=== PATIENT | female | born 1940 | race Caucasian/White ===

== ENCOUNTER 2022-09-14 08:31 | Inpatient (IN) | payer MEDICARE, OTHER ==
[2022-09-14] MEDS ORDERED: Dextrose 50% Abboject 50 ML SYRINGE ONE ×2 (09:17→10:14)
[2022-09-14 09:20] LABS: Hemoglobin 13.3 g/dL (12.0-16.0); Mean Corpuscular HGB CONC 31.9 g/dL (32.0-36.0); Mean Corpuscular Hemoglobin 35.7 pg (27.0-31.0); Mean Platelet Volume 9.1 fL (7.4-10.4); Platelet Count 141 10x3/uL (130-400); RBC Distribution Width 12.7 % (11.5-14.5); Red Blood Cell (RBC) Count 3.72 mill/uL (4.20-5.40); White Blood Cell (WBC) Count 21.6 10x3/uL (4.8-10.8)
[2022-09-14] MEDS ORDERED: diphenhydrAMINE 50 MG/ML VIAL ONE (09:20)
[2022-09-14] MEDS ORDERED: methylPREDNISolone Sod Succ 40 MG VIAL ONE (09:20)
[2022-09-14] MEDS ORDERED: Famotidine/PF 20 mg/2ml Vial ONE ×2 (09:20→09:26)
[2022-09-14 09:30] LABS: INR-International Normal Ratio 1.7
[2022-09-14 09:31] LABS: PTT 32.7 sec (22.9-36.1)
[2022-09-14 09:50] LABS: ALT (SGPT) 799 U/L (8-55); AST (SGOT) 723 U/L (5-34); Alkaline Phosphatase 193 U/L (40-110); Anion Gap 29 mmol/L (10-20); BUN (Urea Nitrogen) 78 mg/dL (9.8-20.1); Bilirubin, Total 1.2 mg/dL (0.2-1.2); Calc. Creatinine Clearance 0 mL/min (70-130); Calcium 8.2 mg/dL (7.8-10.44); Chloride 110 mmol/L (98-107); Estimated GFR 10; Globulin 2.6 g/dL (2.4-3.5); Glucose 140 mg/dL (83-110); Lipase 48 U/L (8-78); Protein, Total 5.6 g/dL (5.8-8.1); Sodium 140 mmol/L (136-145)
[2022-09-14 09:57] LABS: Carbon Dioxide 8 mmol/L (23-31); Potassium 6.9 mmol/L (3.5-5.1)
[2022-09-14] MEDS ORDERED: Cefepime 2 GM VIAL ONE (10:14)
[2022-09-14] MEDS ORDERED: Insulin Regular 300 UNITS/3 ML VIAL ONE (10:14)
[2022-09-14] MEDS ORDERED: Calcium Chloride 1 GM/10 ML Abboject SYRINGE ONE (10:14)
[2022-09-14] MEDS ORDERED: Vancomycin 1 GM/200 ML (FROZEN) BAG ONE (10:14)
[2022-09-14 10:15] LABS: CKMB 6.8 ng/mL (0-6.6)
[2022-09-14 10:54] LABS: Band 6 % (5-11); Lymphocytes 5 % (21-51); MDiff Complete? YES; Macrocytosis SLIGHT = 6-15 cells (100X) (0-5/hpf); Monocytes 2 % (0-10); Neutrophil 87 % (42-75); Platelet Morphology Comment Appears Adequate; Polychromasia SLIGHT = 2-3 cells (100X) (0-2/hpf)
[2022-09-14 11:26] LABS: Critical Call CKMB 6.8
[2022-09-14 11:29] LABS: Bacteria/HPF 3+ HPF (None Seen); Bilirubin Negative (Negative); Blood, Urine 1+ (Negative); Clarity Cloudy (Clear); Glucose, Urine (Dipstick) Normal (Negative); Ketone, Urine Negative (Negative); Leukocyte Negative Leu/uL (Negative); Nitrite Negative (Negative); Protein, Urine (Dipstick) 600 mg/dL (Neg-Trace); RBC/HPF 0-3 HPF (0-3); Specific Gravity, Urine 1.022 (1.002-1.036); Squamous Epithelial 0-3 HPF (0-3); Urobilinogen Normal mg/dL (Less than 2); WBC/HPF 0-3 HPF (0-3)
[2022-09-14] MEDS ORDERED: Sodium Chloride 0.9% 1,000 ML IV SCH (13:00)
[2022-09-14 16:32] VITALS: BP 73/56; TEMP 97.4
== END 2022-09-14 16:55 | disposition home or self-care (01) | DRG 871 ==
LOC: ERS 08:31 → ERHOLD 11:32 → MSONC 16:00
PROVIDERS: ADMIT Internal Medicine; ATTEND Internal Medicine
DX: A41.9 Sepsis, unspecified organism (principal); I21.4 Non-ST elevation (NSTEMI) myocardial infarction; R65.21 Severe sepsis with septic shock; J96.01 Acute respiratory failure with hypoxia; I13.0 Hypertensive heart and chronic kidney disease with heart failure and stage 1 through stage 4 chronic kidney disease, or unspecified chronic kidney disease; N18.4 Chronic kidney disease, stage 4 (severe); N17.9 Acute kidney failure, unspecified; E87.20 Acidosis, unspecified; J84.10 Pulmonary fibrosis, unspecified; E87.5 Hyperkalemia; I25.10 Atherosclerotic heart disease of native coronary artery without angina pectoris; Z79.51 Long term (current) use of inhaled steroids; Z88.8 Allergy status to other drugs, medicaments and biological substances; Z79.82 Long term (current) use of aspirin; Z79.899 Other long term (current) drug therapy; Z95.5 Presence of coronary angioplasty implant and graft
CPT/HCPCS: 36415; 36416; 70450; 71045; 80053; 81003; 81015; 82550; 82553; 83605; 83690; 83880; 84484; 85025; 85610; 85730; 87040; 87086; 93005; 93306; 94760; J0692; J1200; J1815; J2920; J3370-JW; J7050; J7999; S0028